=== PATIENT | male | born 1980 | race Caucasian/White ===

== ENCOUNTER 2022-08-17 13:03 | Outpatient (CLI) | payer OTHER, SELFPAY ==
[2022-08-17 14:06] LABS: Basophils Absolute Auto 0.04 K/uL (0.00-0.30); Basophils Percent Auto 0.5 % (0.0-3.0); Eosinophils Absolute Auto 0.18 K/uL (0.00-0.50); Eosinophils Percent Auto 2.3 % (0.0-7.0); Hematocrit 48.9 % (37.0-53.0); Hemoglobin* 17.1 gm/dL (13.5-17.5); Immature Granulocytes Abs Auto 0.03 K/uL (0.00-0.30); Immature Granulocytes Pct Auto 0.4 %; Lymphocytes Percent Auto 29.5 % (20-44); Mean Corpuscular HGB Conc 35 gm/dL (32-36); Mean Corpuscular Hemoglobin 31 pg (26-34); Mean Corpuscular Volume 90 fL (80-100); Monocytes Percent Auto 9.4 % (0.0-11.0); Neutrophils Absolute Auto 4.52 K/uL (1.7-7.0); Neutrophils Percent Auto 57.9 % (42.0-72.0); Platelet Count* 370 K/uL (140-440); RDW Coefficient of Variation % 12.7 % (11.5-15.5); Red Blood Count 5.46 m/uL (4.30-5.90)
[2022-08-17 14:36] LABS: Slide Review Reflex Yes
[2022-08-17 14:37] LABS: Slide Review Acceptable Review (Acceptable)
[2022-08-17 14:50] LABS: Chloride* 103 mmol/L (96-114); Potassium* 4.8 mmol/L (3.6-5.1); Sodium* 139 mmol/L (135-149)
[2022-08-17 14:53] LABS: Blood Urea Nitrogen* 13 mg/dL (5-24); Carbon Dioxide* 28 mmol/L (20-32); Cholesterol* 223 mg/dL (90-199); Creatinine* 0.9 mg/dL (0.5-1.5); Estimated Glomerular Filt Rate 109 ml/min; Glucose* 94 mg/dL (60-115)
[2022-08-17 14:54] LABS: Calcium* 9.9 mg/dL (8.4-10.6); HDL Cholesterol* 52 mg/dL (>=40); LDL Cholesterol Calculated 132 mg/dL (<100); Triglycerides* 196 mg/dL (40-149)
== END 2022-08-17 13:04 | disposition home or self-care (01) ==
PROVIDERS: PCP Family Medicine; Visit Provider Family Medicine
DX: Z00.00 Encounter for general adult medical examination without abnormal findings (principal); R53.83 Other fatigue; Z13.6 Encounter for screening for cardiovascular disorders
CPT/HCPCS: 80048; 80061; 84443; 85025